=== PATIENT | female | born 1975 | race American Indian/Alaskan Native ===

== ENCOUNTER 2018-10-03 02:12 | Emergency (ER) | payer SELFPAY ==
[2018-10-03 02:20] VITALS: BP 118/81
[2018-10-03] MEDS ORDERED: PERCOCET 5/325 PO ONE (03:02)
[2018-10-03] MEDS ORDERED: AUGMENTIN 875 MG PO ONE (03:02)
[2018-10-03] MEDS ORDERED: TORADOL IM ONE (03:02)
[2018-10-03] MEDS ORDERED: ZOFRAN ODT PO ONE (03:03)
--- NOTE | 2018-10-03 04:17 | Emergency Department Report ---
ED General Adult HPI - General Chief complaint: Dental/Oral Stated complaint: ABSCESS BUSTED/EXTREME PAIN Time Seen by Provider: 10/03/18 02:50 Source: patient Mode of arrival: Ambulatory Limitations: No Limitations - History of Present Illness Initial comments: Patient is a 42-year-old [place] female with no past medical history presents to the ED recommended with acute onset persistent severe painful swollen left maxillary premolar molar toothache and swollen gum for the last 1 week worse in the last 2 days. Patient states that she was unable to sleep because of severe pain. Patient also complains of headache and left ear pain. Patient denies dizziness, change in vision, fever, chills, nausea, vomiting, diarrhea, abdominal pain, sore throat, neck pain, traumatic injury or hearing loss. MD Complaint: left upper gum sweling; toothache, facial swelling -: Sudden, week(s) (1) Location: mouth (left premolar and molar toothaches; swollen gums) Radiation: non-radiation Severity scale (0 -10): 10 Quality: burning, aching, sharp, constant Consistency: constant Improves with: none Worsens with: none, movement Associated Symptoms: denies other symptoms, headaches. denies: confusion, chest pain, cough, diaphoresis, fever/chills, loss of appetite, malaise, nausea/vomiting, rash, seizure, shortness of breath, syncope, weakness - Related Data Previous Rx's Medication Instructions Recorded Last Taken Type Clindamycin [Clindamycin CAP] 300 mg PO Q6HR #80 capsule 10/03/18 Unknown Rx Ketorolac [Toradol] 10 mg PO Q6H PRN #20 tablet 10/03/18 Unknown Rx Ondansetron [Zofran Odt] 4 mg PO Q6HR PRN #12 tab.rapdis 10/03/18 Unknown Rx traMADol [Ultram] 50 mg PO Q6HR PRN #15 tablet 10/03/18 Unknown Rx Allergies Allergy/AdvReac Type Severity Reaction Status Date / Time shellfish derived Allergy Swelling Verified 10/03/18 02:30 ED Review of Systems ROS: Stated complaint: ABSCESS BUSTED/EXTREME PAIN Other details as noted in HPI Constitutional: denies: chills, fever Eyes: denies: eye pain, eye discharge, vision change ENT: dental pain, other (swollen gums). denies: ear pain, throat pain Respiratory: denies: cough, shortness of breath, wheezing Cardiovascular: denies: chest pain, palpitations Endocrine: no symptoms reported. denies: excessive sweating, flushing, intolerance to cold, increased thirst, increased urine, unexplained weight gain Gastrointestinal: denies: abdominal pain, nausea, diarrhea Genitourinary: denies: urgency, dysuria, discharge Musculoskeletal: denies: back pain, joint swelling, arthralgia Skin: denies: rash, lesions Neurological: denies: headache, weakness, paresthesias Psychiatric: denies: anxiety, depression Hematological/Lymphatic: denies: easy bleeding, easy bruising ED Past Medical Hx - Past Medical History Previous Medical History?: No - Surgical History Past Surgical History?: No - Social History Smoking Status: Never Smoker Substance Use Type: None - Medications Home Medications: Home Medications Medication Instructions Recorded Confirmed Last Taken Type Clindamycin [Clindamycin CAP] 300 mg PO Q6HR #80 capsule 10/03/18 Unknown Rx Ketorolac [Toradol] 10 mg PO Q6H PRN #20 tablet 10/03/18 Unknown Rx Ondansetron [Zofran Odt] 4 mg PO Q6HR PRN #12 tab.rapdis 10/03/18 Unknown Rx traMADol [Ultram] 50 mg PO Q6HR PRN #15 tablet 10/03/18 Unknown Rx ED Physical Exam - General Limitations: No Limitations General appearance: alert, in no apparent distress - Head Head exam: Present: atraumatic, normocephalic, normal inspection - Eye Eye exam: Present: normal appearance, PERRL, EOMI. Absent: scleral icterus, conjunctival injection, nystagmus, periorbital tenderness Pupils: Present: normal accommodation - ENT ENT exam: Present: mucous membranes moist, other (swollen ulcerated left maxillary gums; severely tender left maxillary premolars and molar teeth) - Neck Neck exam: Present: normal inspection, full ROM. Absent: tenderness, meningismus, lymphadenopathy, thyromegaly - Respiratory Respiratory exam: Present: normal lung sounds bilaterally. Absent: respiratory distress, wheezes, rales, stridor, chest wall tenderness, accessory muscle use, decreased breath sounds - Cardiovascular Cardiovascular Exam: Present: regular rate, normal rhythm, normal heart sounds. Absent: systolic murmur, diastolic murmur, rubs, gallop - GI/Abdominal GI/Abdominal exam: Present: soft, normal bowel sounds. Absent: tenderness, guarding, rebound, hyperactive bowel sounds, hypoactive bowel sounds, organomegaly, mass - Extremities Exam Extremities exam: Present: normal inspection, full ROM, normal capillary refill - Back Exam Back exam: Present: normal inspection, full ROM. Absent: tenderness, CVA tenderness (R), CVA tenderness (L), muscle spasm, paraspinal tenderness, vertebral tenderness - Neurological Exam Neurological exam: Present: alert, oriented X3, CN II-XII intact, normal gait, reflexes normal - Psychiatric Psychiatric exam: Present: normal affect, normal mood - Skin Skin exam: Present: warm, dry, intact, normal color. Absent: rash ED Course Vital Signs 10/03/18 10/03/18 10/03/18 02:17 03:40 03:45 Temperature 98.0 F Pulse Rate 83 Respiratory 18 20 20 Rate Blood Pressure 118/81 O2 Sat by Pulse 97 Oximetry - Reevaluation(s) Reevaluation #1: 10/03/18 04:19 This is a 42-year-old female who presented to the ED with severe swollen left maxillary gums and premolar and molar toothaches for the last 1 week, which was 2 days ago. Patient is alert and oriented 3 and is not in distress. Patient was treated for pain in the ED and on reevaluation, patient's pain is well controlled on medications. Patient was discharged home on antibiotics and pain medications and advised to follow-up with a dentist or primary care physician in 7-10 days for reevaluation. Patient was advised to return to the ED immediately if symptoms get worse. ED Medical Decision Making - Medical Decision Making This is a 42-year-old female who presented to the ED with severe swollen left maxillary gums and premolar and molar toothaches for the last 1 week, which was 2 days ago. Patient is alert and oriented 3 and is not in distress. Patient was treated for pain in the ED and on reevaluation, patient's pain is well controlled on medications. Patient was discharged home on antibiotics and pain medications and advised to follow-up with a dentist or primary care physician in 7-10 days for reevaluation. Patient was advised to return to the ED immediately if symptoms get worse. - Differential Diagnosis acute gingivitis; dental caries; dental abscess Critical care attestation.: If time is entered above; I have spent that time in minutes in the direct care of this critically ill patient, excluding procedure time. ED Disposition Clinical Impression: Dental abscess, Acute gingivitis Disposition: TO HOME OR SELFCARE Is pt being admited?: No Does the pt Need Aspirin: No Condition: Stable Instructions: Gingivitis (ED), Dental Abscess (ED), Dental Caries (ED) Additional Instructions: Take medications with food, drink plenty of fluids and follow-up with your primary care physician in 7-10 days for reevaluation. Return to the ED immediately if symptoms get worse. Prescriptions: Clindamycin [Clindamycin CAP] 300 mg PO Q6HR #80 capsule Ketorolac [Toradol] 10 mg PO Q6H PRN #20 tablet PRN Reason: Pain traMADol [Ultram] 50 mg PO Q6HR PRN #15 tablet PRN Reason: Pain Ondansetron [Zofran Odt] 4 mg PO Q6HR PRN #12 tab.rapdis PRN Reason: Nausea Referrals: [facility] [Outside] - 3-5 Days Time of Disposition: 04:21 Print Language: SWEDISH
== END 2018-10-03 05:25 | disposition home or self-care (01) ==
LOC: ED 02:12
DX: K04.7 Periapical abscess without sinus (principal); K05.00 Acute gingivitis, plaque induced; Z79.899 Other long term (current) drug therapy; Z91.013 Allergy to seafood
CPT/HCPCS: 96372; 99282; J1885; Q0162

== ENCOUNTER 2018-10-14 20:06 | Emergency (ER) | payer SELFPAY ==
[2018-10-14 21:01] VITALS: BP 107/73
--- NOTE | 2018-10-14 21:04 | Emergency Department Report ---
- General Chief complaint: Extremity Injury, Lower Stated complaint: ALERGIC REATION Time Seen by Provider: 10/14/18 20:58 Source: patient Mode of arrival: Ambulatory Limitations: No Limitations - History of Present Illness Initial comments: pt is a 42 yo female who presents to the ED with c/o a wasp sting that occurred a week ago. states she began to have erythema of surrounding where the sting was three days ago. she denies any fever or drainage. no PMHx. allergy: shellfish. - Related Data Previous Rx's Medication Instructions Recorded Last Taken Type Clindamycin [Clindamycin CAP] 300 mg PO Q6HR #80 capsule 10/03/18 Unknown Rx Ketorolac [Toradol] 10 mg PO Q6H PRN #20 tablet 10/03/18 Unknown Rx Ondansetron [Zofran Odt] 4 mg PO Q6HR PRN #12 tab.rapdis 10/03/18 Unknown Rx traMADol [Ultram] 50 mg PO Q6HR PRN #15 tablet 10/03/18 Unknown Rx Acetaminophen/Codeine [Tylenol 1 tab PO Q6H PRN #7 tab 10/14/18 Unknown Rx /Codeine # 3 tab] Ibuprofen [Motrin 600 MG tab] 600 mg PO Q8H PRN #14 tablet 10/14/18 Unknown Rx Sulfamethoxazole/Trimethoprim 1 each PO BID 10 Days #20 tablet 10/14/18 Unknown Rx [Bactrim DS TAB] Allergies Allergy/AdvReac Type Severity Reaction Status Date / Time shellfish derived Allergy Swelling Verified 10/03/18 02:30 Abscess Boil HPI - HPI Chief Complaint: Extremity Injury, Lower Stated Complaint: ALERGIC REATION Time Seen by Provider: 10/14/18 20:58 Home Medications: Previous Rx's Medication Instructions Recorded Last Taken Type Clindamycin [Clindamycin CAP] 300 mg PO Q6HR #80 capsule 10/03/18 Unknown Rx Ketorolac [Toradol] 10 mg PO Q6H PRN #20 tablet 10/03/18 Unknown Rx Ondansetron [Zofran Odt] 4 mg PO Q6HR PRN #12 tab.rapdis 10/03/18 Unknown Rx traMADol [Ultram] 50 mg PO Q6HR PRN #15 tablet 10/03/18 Unknown Rx Acetaminophen/Codeine [Tylenol 1 tab PO Q6H PRN #7 tab 10/14/18 Unknown Rx /Codeine # 3 tab] Ibuprofen [Motrin 600 MG tab] 600 mg PO Q8H PRN #14 tablet 10/14/18 Unknown Rx Sulfamethoxazole/Trimethoprim 1 each PO BID 10 Days #20 tablet 10/14/18 Unknown Rx [Bactrim DS TAB] Allergies/Adverse Reactions: Allergies Allergy/AdvReac Type Severity Reaction Status Date / Time shellfish derived Allergy Swelling Verified 10/03/18 02:30 ED Review of Systems ROS: Stated complaint: ALERGIC REATION Other details as noted in HPI Comment: All other systems reviewed and negative ED Past Medical Hx - Past Medical History Previous Medical History?: No - Surgical History Past Surgical History?: Yes Hx Cholecystectomy: Yes Additional Surgical History: Tubal Ligation - Social History Smoking Status: Never Smoker Substance Use Type: None - Medications Home Medications: Home Medications Medication Instructions Recorded Confirmed Last Taken Type Clindamycin [Clindamycin CAP] 300 mg PO Q6HR #80 capsule 10/03/18 Unknown Rx Ketorolac [Toradol] 10 mg PO Q6H PRN #20 tablet 10/03/18 Unknown Rx Ondansetron [Zofran Odt] 4 mg PO Q6HR PRN #12 tab.rapdis 10/03/18 Unknown Rx traMADol [Ultram] 50 mg PO Q6HR PRN #15 tablet 10/03/18 Unknown Rx Acetaminophen/Codeine [Tylenol 1 tab PO Q6H PRN #7 tab 10/14/18 Unknown Rx /Codeine # 3 tab] Ibuprofen [Motrin 600 MG tab] 600 mg PO Q8H PRN #14 tablet 10/14/18 Unknown Rx Sulfamethoxazole/Trimethoprim 1 each PO BID 10 Days #20 tablet 10/14/18 Unknown Rx [Bactrim DS TAB] ED Physical Exam - General Limitations: No Limitations General appearance: alert, in no apparent distress - Head Head exam: Present: atraumatic, normocephalic - Eye Eye exam: Present: normal appearance - Neurological Exam Neurological exam: Present: alert, oriented X3 - Psychiatric Psychiatric exam: Present: normal affect, normal mood - Skin Skin exam: Present: warm, dry, other (4 cm circular area of erythema to the right amin, no fluctuance, small amount of edema to the right amin, no blistering, no skin denduing, no necrosis, 2+ distal pulses, sensation intact ) ED Course Vital Signs 10/14/18 20:59 Temperature 98.1 F Pulse Rate 92 H Respiratory 16 Rate Blood Pressure 107/73 [Left] O2 Sat by Pulse 100 Oximetry ED Medical Decision Making - Medical Decision Making pt is a 42 yo female who presents to the ED with c/o a wasp sting that occurred a week ago. states she began to have erythema of surrounding where the sting was three days ago. she denies any fever or drainage. no PMHx. allergy: shellfish. vitals are normal. on exam: 4 cm circular area of erythema to the right amin, no fluctuance, small amount of edema to the right amin, no blistering, no skin denduing, no necrosis, 2+ distal pulses, sensation intact. pt given prescription for bactrim, tylenol with codeine, and ibuprofen. advised pt to please take medication as prescribed. do not drive or operate heavy machinery while taking pain medication. please follow up with a primary care doctor in the next 2-3 days for reevaluation. may also take benadryl over the counter. return to the emergency room immediately for any new or worsening symptoms or any worsening signs of infection despite antibiotic therapy. discussed if had increasing redness, pain, or edema then return immediately. Critical care attestation.: If time is entered above; I have spent that time in minutes in the direct care of this critically ill patient, excluding procedure time. ED Disposition Clinical Impression: Wasp sting Qualifiers: Encounter type: initial encounter Injury intent: accidental or unintentional Qualified Code(s): T63.461A - Toxic effect of venom of wasps, accidental (unintentional), initial encounter Cellulitis Qualifiers: Site of cellulitis: extremity Site of cellulitis of extremity: lower extremity Laterality: left Qualified Code(s): L03.116 - Cellulitis of left lower limb Disposition: DC-01 TO HOME OR SELFCARE Is pt being admited?: No Does the pt Need Aspirin: No Condition: Stable Instructions: Cellulitis (ED), Insect Bite or Sting (ED) Additional Instructions: please take medication as prescribed. do not drive or operate heavy machinery while taking pain medication. please follow up with a primary care doctor in the next 2-3 days for reevaluation. may also take benadryl over the counter. return to the emergency room immediately for any new or worsening symptoms or any worsening signs of infection despite antibiotic therapy. Prescriptions: Sulfamethoxazole/Trimethoprim [Bactrim DS TAB] 1 each PO BID 10 Days #20 tablet Ibuprofen [Motrin 600 MG tab] 600 mg PO Q8H PRN #14 tablet PRN Reason: Pain, Moderate (4-6) Acetaminophen/Codeine [Tylenol /Codeine # 3 tab] 1 tab PO Q6H PRN #7 tab PRN Reason: Pain , Severe (7-10) Referrals: [facility] [Provider Group] - 2-3 Days [facility] [Outside] - 2-3 Days [facility] [Outside] - 2-3 Days Time of Disposition: 21:08 Print Language: TURKMEN
== END 2018-10-14 22:00 | disposition home or self-care (01) ==
LOC: ED 20:06
DX: T63.461A Toxic effect of venom of wasps, accidental (unintentional), initial encounter (principal); L03.115 Cellulitis of right lower limb; Z90.49 Acquired absence of other specified parts of digestive tract; Z98.890 Other specified postprocedural states; Z98.51 Tubal ligation status; Z79.899 Other long term (current) drug therapy; Z91.013 Allergy to seafood; Y92.89 Other specified places as the place of occurrence of the external cause
CPT/HCPCS: 99282

== ENCOUNTER 2020-04-07 01:34 | Emergency (ER) | payer BC ==
[2020-04-07] MEDS ORDERED: SODIUM CHLORIDE 0.9% 1000 ML IV SOLN IV ONE (02:16)
--- NOTE | 2020-04-07 02:18 | Emergency Department Report ---
Blank Doc - Documentation Documentation: 44-year-old female 10 days status post hysterectomy presents emerged department complaining of severe pelvic pain associated with fever nausea of unknown etiology. Has taken Tylenol just prior to arrival reports having a fever prior to that time. This initial assessment/diagnostic orders/clinical plan/treatment(s) is/are subject to change based on patients health status, clinical progression and re- assessment by fellow clinical providers in the ED. Further treatment and workup at subsequent clinical providers discretion. Patient/guardian urged not to elope from the ED as their condition may be serious if not clinically assessed and managed. Initial orders include: Labs, urinalysis, CT scan, sepsis ED evaluation. Currently she is afebrile but has recently taken Tylenol about 2 hours prior to arrival
[2020-04-07 03:12] LABS: Alanine Aminotransferase 94 units/L (7-56); Basophils # (Auto) 0.1 K/mm3 (0.0-0.1); Basophils % (Auto) 0.8 % (0.0-1.8); Blood Urea Nitrogen 5 mg/dL (7-17); Calcium 9.1 mg/dL (8.4-10.2); Eosinophils # (Auto) 0.3 K/mm3 (0.0-0.4); Eosinophils % (Auto) 3.6 % (0.0-4.3); Hematocrit 23.6 % (30.3-42.9); Hemoglobin 7.8 gm/dl (10.1-14.3); Hemolysis Index 0; Lymphocytes # (Auto) 1.5 K/mm3 (1.2-5.4); Lymphocytes % (Auto) 16.4 % (13.4-35.0); Mean Corpuscular HGB Conc 33 % (30-34); Monocytes # (Auto) 0.8 K/mm3 (0.0-0.8); Monocytes % (Auto) 8.5 % (0.0-7.3); Platelet Count 581 K/mm3 (140-440); Red Cell Distribution Width 17.7 % (13.2-15.2)
[2020-04-07 03:17] LABS: Mean Corpuscular Volume 70 fl (79-97)
[2020-04-07] MEDS ORDERED: PIPERACIL/TAZOBACTA 4.5/NS 100 4.5 GM/100 ML VIAL IV ONE (03:27)
[2020-04-07] MEDS ORDERED: VANCOMYCIN/NS 1 GM/250 ML 1 GM/250 ML BAG IV ONE (03:27)
--- NOTE | 2020-04-07 03:30 | Emergency Department Report ---
ED Abdominal Pain HPI - General Chief Complaint: Fever Stated Complaint: FEVER;ABDOMINAL PAIN PUI?: No Time Seen by Provider: 04/07/20 03:26 Source: patient Mode of arrival: Ambulatory Limitations: No Limitations - History of Present Illness Initial Comments: Patient is a 44-year-old female that presents emergency room with complaints of abdominal pain, fever, chills, vaginal odor and discharge. Patient states that her fever and chills started 4 days ago. Patient states her vaginal odor and abdominal pain started today. Patient states her pain is a 10 out of 10. Patient states her pain is better with rest and worse with movement. Patient states she had a hysterectomy on 03/27/2019 at [facility] with Dr. Will. Patient states she had a hysterectomy due to fibroids. Patient states her symptoms are worsening. Patient denies recent travel. Patient denies recent international travel. Patient denies exposure to the novel coronavirus. Patient denies sick contacts. Patient denies loss of smell.. Patient denies cough. Patient denies diarrhea. Patient denies coming in contact with anybody with symptoms of the novel coronavirus. MD Complaint: abdominal pain -: Sudden Location: suprapubic Radiation: none Migration to: no migration Severity: severe Severity scale (0 -10): 10 Quality: stabbing, sharp Consistency: constant Improves With: rest Worsens With: movement Context: recent surgery/procedure Associated Symptoms: fever, chills. denies: nausea, vomiting, diarrhea, constipation, dysuria, hematemesis, hematochezia, melena, hematuria, anorexia, syncope Treatments Prior to Arrival: NSAIDs - Related Data LMP (females 10-50): other Previous Rx's Medication Instructions Recorded Last Taken Type Clindamycin [Clindamycin CAP] 300 mg PO Q6HR #80 capsule 10/03/18 Unknown Rx Ketorolac [Toradol] 10 mg PO Q6H PRN #20 tablet 10/03/18 Unknown Rx Ondansetron [Zofran Odt] 4 mg PO Q6HR PRN #12 tab.rapdis 10/03/18 Unknown Rx traMADoL [Ultram] 50 mg PO Q6HR PRN #15 tablet 10/03/18 Unknown Rx Acetaminophen/Codeine [Tylenol 1 tab PO Q6H PRN #7 tab 10/14/18 Unknown Rx /Codeine # 3 tab] Ibuprofen [Motrin 600 MG tab] 600 mg PO Q8H PRN #14 tablet 10/14/18 Unknown Rx Sulfamethoxazole/Trimethoprim 1 each PO BID 10 Days #20 tablet 10/14/18 Unknown Rx [Bactrim DS TAB] Butalb/Acetamin/Caff 50-325-40 1 tab PO Q6HR PRN #10 tab 08/24/19 Unknown Rx [Fioricet] Sulfamethoxazole/Trimethoprim 1 each PO BID 3 Days #6 tablet 08/24/19 Unknown Rx [Bactrim DS TAB] Allergies Allergy/AdvReac Type Severity Reaction Status Date / Time shellfish derived Allergy Swelling Verified 10/03/18 02:30 ED Review of Systems ROS: Stated complaint: FEVER;ABDOMINAL PAIN Other details as noted in HPI Constitutional: chills, fever Eyes: denies: eye pain, eye discharge, vision change ENT: denies: ear pain, throat pain Respiratory: denies: cough, shortness of breath, wheezing Cardiovascular: denies: chest pain, palpitations Endocrine: no symptoms reported Gastrointestinal: as per HPI, abdominal pain. denies: nausea, diarrhea Genitourinary: as per HPI, discharge. denies: urgency, dysuria Musculoskeletal: denies: back pain, joint swelling, arthralgia Skin: denies: rash, lesions Neurological: denies: headache, weakness, paresthesias Psychiatric: denies: anxiety, depression Hematological/Lymphatic: denies: easy bleeding, easy bruising ED Past Medical Hx - Past Medical History Previous Medical History?: Yes Additional medical history: Uterine Fibroids. - Surgical History Past Surgical History?: Yes Hx Cholecystectomy: Yes Additional Surgical History: Tubal Ligation. Partial Hysterectomy - Family History Family history: no significant - Social History Smoking Status: Never Smoker Substance Use Type: None - Medications Home Medications: Home Medications Medication Instructions Recorded Confirmed Last Taken Type Clindamycin [Clindamycin CAP] 300 mg PO Q6HR #80 capsule 10/03/18 Unknown Rx Ketorolac [Toradol] 10 mg PO Q6H PRN #20 tablet 10/03/18 Unknown Rx Ondansetron [Zofran Odt] 4 mg PO Q6HR PRN #12 tab.rapdis 10/03/18 Unknown Rx traMADoL [Ultram] 50 mg PO Q6HR PRN #15 tablet 10/03/18 Unknown Rx Acetaminophen/Codeine [Tylenol 1 tab PO Q6H PRN #7 tab 10/14/18 Unknown Rx /Codeine # 3 tab] Ibuprofen [Motrin 600 MG tab] 600 mg PO Q8H PRN #14 tablet 10/14/18 Unknown Rx Sulfamethoxazole/Trimethoprim 1 each PO BID 10 Days #20 tablet 10/14/18 Unknown Rx [Bactrim DS TAB] Butalb/Acetamin/Caff 50-325-40 1 tab PO Q6HR PRN #10 tab 08/24/19 Unknown Rx [Fioricet] Sulfamethoxazole/Trimethoprim 1 each PO BID 3 Days #6 tablet 08/24/19 Unknown Rx [Bactrim DS TAB] ED Physical Exam - General Limitations: No Limitations General appearance: alert, in no apparent distress - Head Head exam: Present: atraumatic, normocephalic - Eye Eye exam: Present: normal appearance - ENT ENT exam: Present: mucous membranes moist - Neck Neck exam: Present: normal inspection - Respiratory Respiratory exam: Present: normal lung sounds bilaterally. Absent: respiratory distress - Cardiovascular Cardiovascular Exam: Present: regular rate, normal rhythm. Absent: systolic murmur, diastolic murmur, rubs, gallop - GI/Abdominal GI/Abdominal exam: Present: soft, tenderness (Generalized abdominal tenderness.), normal bowel sounds, other (Multiple surgical scars noted on the abdominal skin.) - Extremities Exam Extremities exam: Present: normal inspection - Back Exam Back exam: Present: normal inspection - Neurological Exam Neurological exam: Present: alert, oriented X3 - Psychiatric Psychiatric exam: Present: normal affect, normal mood - Skin Skin exam: Present: warm, dry, intact, normal color. Absent: rash ED Course Vital Signs 04/07/20 04/07/20 02:01 02:45 Temperature 99.8 F H Pulse Rate 116 H 94 H Respiratory 18 13 Rate Blood Pressure 107/68 O2 Sat by Pulse 99 Oximetry - Reevaluation(s) Reevaluation #1: Patient's heart rate is improving. Patient's blood pressure still stable. 04/07/20 04:00 Reevaluation #2: Patient still complaining of pain. Patient was given Dilaudid. Patient's blood pressure is stable. Patient heart rate is 90 now. 04/07/20 05:01 Reevaluation #3: I discussed all results and clinical findings with patient. I discussed plan of care with patient. Patient agrees with plan of care. Patient is stable for transport. Patient agrees with transfer to [facility]. 04/07/20 06:00 - Consultations Consultation #1: I discussed case with general surgery, Dr. Bowles. Dr. Bowles recommends transfer back to the original hospital where she had a hysterectomy. 04/07/20 05:02 Consultation #2: I discussed the case with the attending government operations consultant for the [facility] at [facility]. Dr. Monroe has accepted the patient to be transferred to [facility]. Dr. Monroe states he will call better control and obtain as a bed. 04/07/20 05:41 ED Medical Decision Making - Lab Data Result diagrams: 04/07/20 02:31 04/07/20 02:31 - Radiology Data Radiology results: report reviewed, image reviewed CT ABDOMEN AND PELVIS WITH CONTRAST INDICATION: pelvic pain fever. TECHNIQUE: Axial CT images were obtained through the abdomen and pelvis after 100 cc IV contrast. All CT scans at this location are performed using CT dose reduction for ALARA by means of automated exposure control. COMPARISON: None available. FINDINGS: LOWER CHEST: Small right and tiny left pleural effusions. LIVER: No significant abnormality. GALLBLADDER: Surgically absent BILE DUCTS: No significant abnormality. PANCREAS: No significant abnormality. SPLEEN: No significant abnormality. ADRENALS: No significant abnormality. RIGHT KIDNEY and URETER: No significant abnormality. LEFT KIDNEY and URETER: No significant abnormality. STOMACH and SMALL BOWEL: No significant abnormality. COLON: Moderate bowel wall thickening of rectosigmoid colon. APPENDIX: Normal PERITONEUM: No free fluid. No free air. Contained pericolonic abscess with air-fluid level within central pelvis measures 4.9 x 5.7 cm in AP by transverse dimension LYMPH NODES: Multiple shotty subcentimeter reactive retroperitoneal and mesenteric lymph nodes measuring up to 1 cm AORTA and ARTERIES: No significant abnormality. IVC and VEINS: No significant abnormality. URINARY BLADDER: No significant abnormality. REPRODUCTIVE ORGANS: No significant abnormality. ADDITIONAL FINDINGS: None. SKELETAL SYSTEM: No significant abnormality. IMPRESSION: 1. Proctocolitis with contained pericolonic perforation with 5 cm pelvic abscess. - Medical Decision Making Patient is a 44-year-old female that presents emergency room for fever and chills, abdominal pain and vaginal odor. Patient had a hysterectomy on 27 March of this year. Patient had labs done which were essentially unremarkable. Patient in triage found to be febrile, tachycardic. Patient had a sepsis protocol called in triage. Patient given fluids and antibiotics early in the ER stay. His lactic acid was negative. Patient had a CT scan which showed a pericolonic abscess with pericolonic rupture. - Differential Diagnosis Sepsis, abdominal pain, fever, postop fever, chills Critical Care Time: Yes Critical care time in (mins) excluding proc time.: 35 Critical care attestation.: If time is entered above; I have spent that time in minutes in the direct care of this critically ill patient, excluding procedure time. Critical Care Time: 35 minutes ED Disposition Clinical Impression: Abdominal pain Qualifiers: Abdominal location: lower abdomen, unspecified Qualified Code(s): R10.30 - Lower abdominal pain, unspecified Fever Qualifiers: Fever type: unspecified Qualified Code(s): R50.9 - Fever, unspecified Sepsis Qualifiers: Sepsis type: sepsis due to unspecified organism Sepsis acute organ dysfunction status: without acute organ dysfunction Qualified Code(s): A41.9 - Sepsis, unspecified organism Anemia Qualifiers: Anemia type: unspecified type Qualified Code(s): D64.9 - Anemia, unspecified Disposition: DC/TX-70 ANOTHER TYPE HLTHCARE Is pt being admited?: No Does the pt Need Aspirin: No Condition: Critical Time of Disposition: 05:59
[2020-04-07 03:33] LABS: BUN/Creatinine Ratio 10
[2020-04-07 04:22] LABS: Bilirubin,Urine NEG (Negative); Blood,Urine NEG (Negative); Color,Urine Yellow (Yellow); Hyaline Casts,Urine 5 /LPF; Mucus,Urine 3+ /HPF
--- NOTE | 2020-04-07 04:46 | Cat Scan Report ---
CT ABDOMEN AND PELVIS WITH CONTRAST INDICATION: pelvic pain fever. TECHNIQUE: Axial CT images were obtained through the abdomen and pelvis after 100 cc IV contrast. All CT scans at this location are performed using CT dose reduction for ALARA by means of automated exposure contr ol. COMPARISON: None available. FINDINGS: LOWER CHEST: Small right and tiny left pleural effusions. LIVER: No significant abnormality. GALLBLADDER: Surgically absent BILE DUCTS: No significant abnormality. PANCREAS: No significant abnormality. SPLEEN: No significant abnormality. ADRENALS: No significant abnormality. RIGHT KIDNEY and URETER: No significant abnormality. LEFT KIDNEY and URETER: No significant abnormality. STOMACH and SMALL BOWEL: No significant abnormality. COLON: Moderate bowel wall thickening of rectosigmoid colon. APPENDIX: Normal PERITONEUM: No free fluid. No free air. Contained pericolonic abscess with air-fluid level within mekhi tral pelvis measures 4.9 x 5.7 cm in AP by transverse dimension LYMPH NODES: Multiple shotty subcentimeter reactive retroperitoneal and mesenteric lymph nodes measur ing up to 1 cm AORTA and ARTERIES: No significant abnormality. IVC and VEINS: No significant abnormality. URINARY BLADDER: No significant abnormality. REPRODUCTIVE ORGANS: No significant abnormality. ADDITIONAL FINDINGS: None. SKELETAL SYSTEM: No significant abnormality. IMPRESSION: 1. Proctocolitis with contained pericolonic perforation with 5 cm pelvic abscess. Signer Name: Ernesto Roa MD Signed: 04/07/2020 4:41 AM Workstation Name: [id number]
[2020-04-07] MEDS ORDERED: HYDROmorphone 1 MG/1 ML INJ ONE (04:51)
[2020-04-07] MEDS ORDERED: ONDANSETRON 4 MG/2 ML INJ ONE (04:51)
[2020-04-07 05:55] VITALS: BP 122/75
== END 2020-04-07 06:59 | disposition other institution (70) ==
LOC: ED 01:34
DX: A41.9 Sepsis, unspecified organism (principal); D64.9 Anemia, unspecified; R50.9 Fever, unspecified; R10.9 Unspecified abdominal pain; Z79.899 Other long term (current) drug therapy; Z90.710 Acquired absence of both cervix and uterus; Z98.890 Other specified postprocedural states; Z98.51 Tubal ligation status; Z90.49 Acquired absence of other specified parts of digestive tract; Z91.013 Allergy to seafood
CPT/HCPCS: 36415; 74177; 80053; 81001; 82140; 85025; 87040; 96361; 96365; 96368; 99285; J1170; J2405; J2543; J3370; J7030; Q9967